=== PATIENT | female | born 1940 | race Caucasian/White ===

== ENCOUNTER → 2017-03-12 | Outpatient (CLI) | payer MEDICARE, MEDICAID ==
[~2017-03-12] MED LIST: ACET-2178 PO; ALEN70TA3 PO; AMLO10TA4 PO; BACL-141 PO; BIMA2.5D4 EACHEYE; CALC667C4 PO; DONE10TA11 PO; FISH OIL PO; FURO-152 PO; GABA-533 PO; HYDR-519 PO; MONT10TA21 PO; MULT-1146 PO; OMEP20CA4 PO; PREG75CA PO; PSEU120T56 PO
== END | disposition home or self-care (01) ==
LOC: CT 10:00
PROVIDERS: ATTEND Neurological Surgery
DX: M75.102 Unspecified rotator cuff tear or rupture of left shoulder, not specified as traumatic (principal); M25.511 Pain in right shoulder; M48.061 Spinal stenosis, lumbar region without neurogenic claudication; M47.896 Other spondylosis, lumbar region; M25.512 Pain in left shoulder
CPT/HCPCS: 72131; 73030

== ENCOUNTER → 2017-07-21 | Outpatient (CLI) | payer MEDICARE, MEDICAID | END | disposition home or self-care (01) | LOC: CT 10:21 | PROVIDERS: ATTEND Neurological Surgery | DX: M48.56XA Collapsed vertebra, not elsewhere classified, lumbar region, initial encounter for fracture (principal); M43.16 Spondylolisthesis, lumbar region; Z98.890 Other specified postprocedural states | CPT/HCPCS: 72100 ==

== ENCOUNTER → 2017-08-07 | Outpatient (CLI) | payer MEDICARE, MEDICAID | END | disposition home or self-care (01) | LOC: CT 08:41 | PROVIDERS: ATTEND Neurological Surgery | DX: M41.86 Other forms of scoliosis, lumbar region (principal); M47.896 Other spondylosis, lumbar region; G95.29 Other cord compression; I10 Essential (primary) hypertension; J45.909 Unspecified asthma, uncomplicated; Z98.1 Arthrodesis status | CPT/HCPCS: 72131 ==

== ENCOUNTER → 2018-04-20 | Outpatient (CLI) | payer MEDICARE, MEDICAID | END | disposition home or self-care (01) | LOC: CT 08:53 | PROVIDERS: ATTEND Neurological Surgery | DX: S32.039A Unspecified fracture of third lumbar vertebra, initial encounter for closed fracture (principal); X58.XXXA Exposure to other specified factors, initial encounter; Y93.89 Activity, other specified; Y92.89 Other specified places as the place of occurrence of the external cause; Y99.8 Other external cause status | CPT/HCPCS: 72131 ==

== ENCOUNTER 2019-05-08 03:41 | Inpatient (IN) | payer MEDICARE, MEDICAID ==
[~2019-05-08] VITALS: Ht 162.6 cm; Wt 77.8 kg
[2019-05-08] VITALS (36 sets, daily range): BP systolic 80–177; BP diastolic 33–93
[~2019-05-08 03:41] MED LIST changes: -ACET-2178 PO; +TOPUD PO
[2019-05-08] MEDS ORDERED: RANI150T7 MT (05:37)
[2019-05-08] MEDS ORDERED: BENA10TA74 MT (05:37)
[2019-05-08] MEDS ORDERED: TIZA4CAP6 PO (05:38)
[2019-05-08] MEDS ORDERED: ONDANSETRON HCL 4MG/2ML INJ IV STA (05:51)
[2019-05-08] MEDS ORDERED: CEFTRIAXONE 1 G PREMIX 50 ML IV ONE (06:00)
[2019-05-08] MEDS ORDERED: SODIUM CHLORIDE 0.9% 1000ML BAG (SEPSIS BOLUS) IV ONE (06:00)
[2019-05-08 06:47] LABS: HEMATOCRIT. 41.9 % (36.0-48.0); MEAN CORPUSCULAR HEMOGLOBIN 30.8 pg (28.0-32.0); MEAN CORPUSCULAR VOLUME 92.4 fL (81.0-99.0); MEAN PLATELET VOLUME 8.1 fl (7.4-10.4); PLATELET 337 x1000/uL (130-400); RED BLOOD CELL COUNT 4.54 mill/uL (4.2-5.4); RED CELL DISTRIBUTION WIDTH 13.5 % (11.6-14.6)
[2019-05-08 06:53] LABS: CHLORIDE 93 mEq/L (98-107)
[2019-05-08 08:00] LABS: PLATELET ESTIMATE NORMAL
[2019-05-08] MEDS ORDERED: ACETAMINOPHEN 325MG TABLET PO ONE (09:00)
[2019-05-08 09:30] LABS: PROTHROMBIN TIME 10.7 sec (9.6-11.0)
[2019-05-08] MEDS ORDERED: NOREPINEPHRINE 4MG/250ML PMX 250 ML IV PRN ×2 (13:15→14:15)
[2019-05-08] MEDS ORDERED: DOCUSATE SODIUM 100MG CAPSULE PO PRN (14:30)
[2019-05-08] MEDS ORDERED: PIPERACILLIN/TAZOBACTAM 3.375 G in DEXT 5% WATER 100 ML IV SCH (14:30)
[2019-05-08] MEDS ORDERED: NOREPINEPHRINE 4MG in DEXT 5% WATER 250ML IV PRN (14:45)
[2019-05-08 14:50] LABS: BG BASE EXCESS -5.5 mmol/L (-2.0-2.0); BG CARBOXYHEMOGLOBIN 0.4 % (0.5-1.5); BG DEOXYHEMOGLOBIN 2.2 % (0.0-5.0); BG METHEMOGLOBIN 0.9 % (0.0-1.5); BG OXYGEN SATURATION 97.8 % (92.0-98.5); BG OXYHEMOGLOBIN 96.5 % (94.0-97.0); BG PCO2 33.8 mmHg (35.0-45.0); BG PH 7.367 (7.350-7.450); BG PO2 109.8 mmHg (75.0-100.0); BG SAMPLE SITE RIGHT BRACHIAL; BG TOTAL HEMOGLOBIN 12.2 g/dL (12.0-18.0); BG VENT MODE NASAL CANNULA
[2019-05-08] MEDS ORDERED: VANCOMYCIN 1250MG in DEXTROSE 5% WATER 250ML IV SCH (16:00)
[2019-05-08 16:27] LABS: CLARITY URINE CLOUDY (CLEAR); COLOR URINE YELLOW (YELLOW); KETONES URINE NEGATIVE (NEGATIVE); LEUKOCYTE ESTERASE URINE TRACE (NEGATIVE); NITRITE URINE NEGATIVE (NEGATIVE); OCCULT BLOOD URINE 1+ (NEGATIVE); PROTEIN URINE 1+ (NEGATIVE); SPECIFIC GRAVITY URINE 1.016 (1.005-1.030); UROBILINOGEN URINE 0.2 E.U./dL (0.2-1.0)
[2019-05-08] MEDS ORDERED: MAGNESIUM CITRATE 300ML SOLUTION PO ONE (17:00)
[2019-05-08] MEDS: PIPERACILLIN/TAZOBACTAM 2.25 G in DEXTROSE 5% WATER 50 ML IV SCH (17:12)
[2019-05-08] MEDS: HYDROCODONE/ACETAMINOPHEN 5/325MG TABLET PO PRN (17:12)
[2019-05-08] MEDS: SODIUM CHLORIDE 0.9% 1,000 ML IV SCH ×2 (17:13→23:26)
[2019-05-08 18:25] LABS: CREATINE KINASE 627 IU/L (26-192)
[2019-05-08] MEDS ORDERED: DONEPEZIL HCL 10MG TABLET PO SCH (21:00)
[2019-05-08] MEDS: HEPARIN 5000 UNITS/ML VIAL SUBCUT SCH (23:33)
[2019-05-09] VITALS (68 sets, daily range): BP systolic 62–158; BP diastolic 36–114
[2019-05-09] MEDS: HYDROCODONE/ACETAMINOPHEN 5/325MG TABLET PO PRN ×3 (04:35→17:12)
[2019-05-09] MEDS ORDERED: NOREPINEPHRINE 4 MG in SODIUM CHLORIDE 0.9% 246 ML IV SCH (06:00)
[2019-05-09 06:49] LABS: HEMATOCRIT. 33.1 % (36.0-48.0); HEMOGLOBIN. 11.1 g/dL (12.0-16.0); MEAN CORPUSCULAR HEMOGLOBIN 31.1 pg (28.0-32.0); MEAN CORPUSCULAR VOLUME 92.6 fL (81.0-99.0); MEAN PLATELET VOLUME 8.5 fl (7.4-10.4); PLATELET 303 x1000/uL (130-400); RED BLOOD CELL COUNT 3.57 mill/uL (4.2-5.4); RED CELL DISTRIBUTION WIDTH 13.3 % (11.6-14.6)
[2019-05-09 06:55] LABS: CHLORIDE 105 mEq/L (98-107)
[2019-05-09 07:00] LABS: PHOSPHORUS 2.6 mg/dL (2.5-4.9)
[2019-05-09 07:01] LABS: HDL CHOLESTEROL 44 mg/dL (40-59); LDL CHOLESTEROL 66 mg/dL (5-100)
[2019-05-09] MEDS: PIPERACILLIN/TAZOBACTAM 2.25 G in DEXTROSE 5% WATER 50 ML IV SCH ×2 (07:58→17:12)
[2019-05-09] MEDS: HEPARIN 5000 UNITS/ML VIAL SUBCUT SCH ×2 (08:15→21:42)
[2019-05-09] MEDS ORDERED: PREG50CA PO (10:00)
[2019-05-09] MEDS ORDERED: LATA7.5D OP (10:00)
[2019-05-09] MEDS ORDERED: FURO-151 PO (10:00)
[2019-05-09] MEDS: SODIUM CHLORIDE 0.9% 1,000 ML IV SCH (12:17)
[2019-05-09 13:46] LABS: PLATELET ESTIMATE NORMAL
[2019-05-09] MEDS ORDERED: VANCOMYCIN 750 MG PREMIX 150 ML IV SCH (15:00)
[2019-05-10] VITALS (41 sets, daily range): BP systolic 94–157; BP diastolic 35–113
[2019-05-10] MEDS: SODIUM CHLORIDE 0.9% 1,000 ML IV SCH ×3 (02:12→16:24)
[2019-05-10] MEDS: HYDROCODONE/ACETAMINOPHEN 5/325MG TABLET PO PRN ×4 (02:12→21:36)
[2019-05-10 06:16] LABS: HEMATOCRIT. 28.1 % (36.0-48.0); HEMOGLOBIN. 9.3 g/dL (12.0-16.0); MEAN CORPUSCULAR HEMOGLOBIN 30.8 pg (28.0-32.0); MEAN CORPUSCULAR VOLUME 92.9 fL (81.0-99.0); MEAN PLATELET VOLUME 9.4 fl (7.4-10.4); PLATELET 215 x1000/uL (130-400); RED BLOOD CELL COUNT 3.02 mill/uL (4.2-5.4); RED CELL DISTRIBUTION WIDTH 13.4 % (11.6-14.6)
[2019-05-10 06:22] LABS: CHLORIDE 111 mEq/L (98-107)
[2019-05-10] MEDS: PIPERACILLIN/TAZOBACTAM 2.25 G in DEXTROSE 5% WATER 50 ML IV SCH ×2 (06:31→17:44)
[2019-05-10 06:44] LABS: PHOSPHORUS 1.3 mg/dL (2.5-4.9)
[2019-05-10 06:47] LABS: T4 FREE 1.29 ng/dL (0.76-1.46)
[2019-05-10] MEDS: HEPARIN 5000 UNITS/ML VIAL SUBCUT SCH ×2 (08:02→21:37)
[2019-05-10] MEDS ORDERED: SODIUM PHOS,M-BASIC-D-BASIC 30 MM in SODIUM CHLORIDE 0.9% 500 ML IV ONE (11:00)
[2019-05-10] MEDS ORDERED: SODIUM PHOS,M-BASIC-D-BASIC 30 MM in DEXT 5% WATER 500 ML IV SCH (12:30)
[2019-05-10] MEDS: VANCOMYCIN 1 G PREMIX 200 ML IV SCH (13:33)
[2019-05-10 13:45] LABS: PLATELET ESTIMATE NORMAL
[2019-05-11] VITALS: BP 151/68
[2019-05-11 04:00] VITALS: BP 143/58
[2019-05-11] MEDS: HYDROCODONE/ACETAMINOPHEN 5/325MG TABLET PO PRN (04:42)
[2019-05-11] MEDS: PIPERACILLIN/TAZOBACTAM 2.25 G in DEXTROSE 5% WATER 50 ML IV SCH ×2 (05:47→17:25)
[2019-05-11] MEDS: VANCOMYCIN 1 G PREMIX 200 ML IV SCH (06:35)
[2019-05-11 07:01] LABS: HEMATOCRIT. 29.4 % (36.0-48.0); HEMOGLOBIN. 9.8 g/dL (12.0-16.0); MEAN CORPUSCULAR HEMOGLOBIN 30.9 pg (28.0-32.0); MEAN CORPUSCULAR VOLUME 92.6 fL (81.0-99.0); MEAN PLATELET VOLUME 9.4 fl (7.4-10.4); PLATELET 233 x1000/uL (130-400); RED BLOOD CELL COUNT 3.17 mill/uL (4.2-5.4); RED CELL DISTRIBUTION WIDTH 13.1 % (11.6-14.6)
[2019-05-11 07:05] LABS: CHLORIDE 111 mEq/L (98-107)
[2019-05-11 07:11] LABS: PHOSPHORUS 1.8 mg/dL (2.5-4.9)
[2019-05-11 08:00] VITALS: BP 145/73
[2019-05-11] MEDS: HEPARIN 5000 UNITS/ML VIAL SUBCUT SCH ×2 (08:47→20:42)
[2019-05-11] MEDS: SODIUM CHLORIDE 0.9% 1,000 ML IV SCH (11:38)
[2019-05-11 12:00] VITALS: BP 172/74
[2019-05-11] MEDS: CLONIDINE 0.1MG TABLET PO PRN (12:50)
[2019-05-11] MEDS: ONDANSETRON HCL 4MG/2ML INJ IV PRN (14:03)
[2019-05-11 14:11] LABS: PLATELET ESTIMATE NORMAL
[2019-05-11 16:00] VITALS: BP 159/67
[2019-05-11] MEDS ORDERED: POTASSIUM PHOS,M-BASIC-D-BASIC 30 MMOL in DEXT 5% WATER 500 ML IV SCH (16:00)
[2019-05-11] MEDS: ACETAMINOPHEN 325MG TABLET PO PRN (16:18)
[2019-05-11] MEDS: BENAZEPRIL 10MG TABLET PO SCH (16:18)
[2019-05-11 20:00] VITALS: BP 138/69
[2019-05-12] VITALS: BP 152/105
[2019-05-12] MEDS: VANCOMYCIN 1 G PREMIX 200 ML IV SCH ×2 (00:50→18:03)
[2019-05-12 04:00] VITALS: BP 166/107
[2019-05-12] MEDS: PIPERACILLIN/TAZOBACTAM 2.25 G in DEXTROSE 5% WATER 50 ML IV SCH ×2 (05:41→17:01)
[2019-05-12] MEDS: CLONIDINE 0.1MG TABLET PO PRN ×2 (06:11→12:35)
[2019-05-12] MEDS: ONDANSETRON HCL 4MG/2ML INJ IV PRN ×2 (06:41→12:41)
[2019-05-12] MEDS: SODIUM CHLORIDE 0.9% 1,000 ML IV SCH ×2 (06:42→21:13)
[2019-05-12 08:00] VITALS: BP 159/69
[2019-05-12 08:10] LABS: HEMATOCRIT. 31.4 % (36.0-48.0); HEMOGLOBIN. 10.4 g/dL (12.0-16.0); MEAN CORPUSCULAR HEMOGLOBIN 30.6 pg (28.0-32.0); MEAN CORPUSCULAR VOLUME 92.2 fL (81.0-99.0); MEAN PLATELET VOLUME 8.7 fl (7.4-10.4); PLATELET 313 x1000/uL (130-400); RED CELL DISTRIBUTION WIDTH 13.4 % (11.6-14.6)
[2019-05-12 08:33] LABS: CHLORIDE 109 mEq/L (98-107)
[2019-05-12] MEDS: BENAZEPRIL 10MG TABLET PO SCH (08:38)
[2019-05-12] MEDS: HEPARIN 5000 UNITS/ML VIAL SUBCUT SCH ×2 (08:38→21:00)
[2019-05-12 08:43] LABS: PHOSPHORUS 2.6 mg/dL (2.5-4.9)
[2019-05-12 10:32] LABS: PLATELET ESTIMATE NORMAL
[2019-05-12 12:00] VITALS: BP 166/77
[2019-05-12] MEDS: HYDRALAZINE HCL 25MG TABLET PO SCH ×2 (15:23→21:12)
[2019-05-12 16:00] VITALS: BP 154/77
[2019-05-12 20:00] VITALS: BP 150/62
[2019-05-12] MEDS: AMLODIPINE 5MG TABLET PO SCH (21:12)
[2019-05-13] VITALS: BP 157/65
[2019-05-13 04:00] VITALS: BP 142/64
[2019-05-13] MEDS: PIPERACILLIN/TAZOBACTAM 2.25 G in DEXTROSE 5% WATER 50 ML IV SCH ×2 (05:39→17:11)
[2019-05-13] MEDS: HYDRALAZINE HCL 25MG TABLET PO SCH (05:48)
[2019-05-13] MEDS: ONDANSETRON HCL 4MG/2ML INJ IV PRN ×3 (06:43→17:11)
[2019-05-13 08:00] VITALS: BP 150/64
[2019-05-13] MEDS: BENAZEPRIL 10MG TABLET PO SCH ×2 (08:10→21:49)
[2019-05-13] MEDS: AMLODIPINE 5MG TABLET PO SCH ×2 (08:10→21:48)
[2019-05-13] MEDS: HEPARIN 5000 UNITS/ML VIAL SUBCUT SCH ×2 (08:11→21:50)
[2019-05-13 09:19] LABS: HEMATOCRIT. 32.6 % (36.0-48.0); MEAN CORPUSCULAR HEMOGLOBIN 30.8 pg (28.0-32.0); MEAN CORPUSCULAR VOLUME 91.7 fL (81.0-99.0); MEAN PLATELET VOLUME 9.4 fl (7.4-10.4); PLATELET 345 x1000/uL (130-400); RED BLOOD CELL COUNT 3.55 mill/uL (4.2-5.4); RED CELL DISTRIBUTION WIDTH 13.2 % (11.6-14.6)
[2019-05-13 09:52] LABS: CHLORIDE 112 mEq/L (98-107)
[2019-05-13 09:57] LABS: PHOSPHORUS 1.6 mg/dL (2.5-4.9)
[2019-05-13 12:00] VITALS: BP 166/63
[2019-05-13] MEDS ORDERED: IOHEXOL-350 100 ML BOTTLE ONE (12:16)
[2019-05-13] MEDS: SODIUM CHLORIDE 0.9% 1,000 ML IV SCH (12:38)
[2019-05-13] MEDS: VANCOMYCIN 1 G PREMIX 200 ML IV SCH (12:38)
[2019-05-13] MEDS: HYDRALAZINE HCL 50MG TABLET PO SCH ×2 (12:42→21:48)
[2019-05-13 13:02] LABS: PLATELET ESTIMATE NORMAL
[2019-05-13 16:00] VITALS: BP 143/91
[2019-05-13 20:00] VITALS: BP 156/56
[2019-05-13] MEDS: ACETAMINOPHEN 325MG TABLET PO PRN (23:52)
[2019-05-14] VITALS: BP 146/65
[2019-05-14] MEDS: METHYLPREDNISOLONE SOD SUCC 40 MG/ML VIAL IV SCH ×4 (00:20→18:49)
[2019-05-14] MEDS: SODIUM CHLORIDE 0.9% 1,000 ML IV SCH ×2 (00:22→13:00)
[2019-05-14] MEDS: ONDANSETRON HCL 4MG/2ML INJ IV PRN (02:46)
[2019-05-14 04:00] VITALS: BP 161/54
[2019-05-14] MEDS: HYDRALAZINE HCL 50MG TABLET PO SCH ×3 (05:07→21:29)
[2019-05-14] MEDS: ACETAMINOPHEN 325MG TABLET PO PRN (05:07)
[2019-05-14] MEDS: PIPERACILLIN/TAZOBACTAM 2.25 G in DEXTROSE 5% WATER 50 ML IV SCH (05:07)
[2019-05-14] MEDS: VANCOMYCIN 1 G PREMIX 200 ML IV SCH (05:59)
[2019-05-14 08:00] VITALS: BP 145/61
[2019-05-14 09:04] LABS: CHLORIDE 112 mEq/L (98-107)
[2019-05-14 09:12] LABS: HEMATOCRIT. 31.1 % (36.0-48.0); HEMOGLOBIN. 10.3 g/dL (12.0-16.0); MEAN CORPUSCULAR HEMOGLOBIN 30.7 pg (28.0-32.0); MEAN CORPUSCULAR VOLUME 92.4 fL (81.0-99.0); MEAN PLATELET VOLUME 9.2 fl (7.4-10.4); PLATELET 414 x1000/uL (130-400); RED BLOOD CELL COUNT 3.37 mill/uL (4.2-5.4); RED CELL DISTRIBUTION WIDTH 13.8 % (11.6-14.6)
[2019-05-14 09:19] LABS: CREATINE KINASE 43 IU/L (26-192)
[2019-05-14] MEDS: BENAZEPRIL 10MG TABLET PO SCH ×2 (10:34→21:29)
[2019-05-14] MEDS: AMLODIPINE 5MG TABLET PO SCH ×2 (10:34→21:29)
[2019-05-14] MEDS: HEPARIN 5000 UNITS/ML VIAL SUBCUT SCH ×2 (10:49→21:28)
[2019-05-14] MEDS ORDERED: LORAZEPAM 2MG/ML CPJ IV NR (11:15)
[2019-05-14] MEDS ORDERED: MAGNESIUM 2 G PREMIX 50 ML IV NR (11:30)
[2019-05-14 12:00] VITALS: BP 165/68
[2019-05-14 14:24] LABS: PLATELET ESTIMATE SLIGHTLY INCREASED
[2019-05-14 16:00] VITALS: BP 138/54
[2019-05-14] MEDS ORDERED: CALCIUM CARBONATE 1250MG TABLET (500MG ELEMENTAL CALCIUM) PO SCH (18:00)
[2019-05-14 20:00] VITALS: BP 138/58
[2019-05-14] MEDS: CALCIUM CARBONATE 1250MG TABLET (500MG ELEMENTAL CALCIUM) PO SCH (21:29)
[2019-05-15] VITALS: BP 141/60
[2019-05-15] MEDS: METHYLPREDNISOLONE SOD SUCC 40 MG/ML VIAL IV SCH ×5 (00:32→23:09)
[2019-05-15] MEDS: VANCOMYCIN 1 G PREMIX 200 ML IV SCH ×2 (01:57→20:18)
[2019-05-15] MEDS: SODIUM CHLORIDE 0.9% 1,000 ML IV SCH ×2 (01:59→17:54)
[2019-05-15 04:00] VITALS: BP 138/61
[2019-05-15] MEDS: HYDRALAZINE HCL 50MG TABLET PO SCH ×3 (06:22→21:38)
[2019-05-15] MEDS ORDERED: ALENDRONATE SODIUM 35MG TABLET PO SCH (07:00)
[2019-05-15 08:05] LABS: HEMATOCRIT. 28.3 % (36.0-48.0); HEMOGLOBIN. 9.6 g/dL (12.0-16.0); MEAN CORPUSCULAR HEMOGLOBIN 31.2 pg (28.0-32.0); PLATELET 430 x1000/uL (130-400); RED BLOOD CELL COUNT 3.08 mill/uL (4.2-5.4); RED CELL DISTRIBUTION WIDTH 13.9 % (11.6-14.6)
[2019-05-15 08:15] LABS: CHLORIDE 114 mEq/L (98-107)
[2019-05-15] MEDS: CALCIUM CARBONATE 1250MG TABLET (500MG ELEMENTAL CALCIUM) PO SCH ×3 (08:50→17:54)
[2019-05-15] MEDS: BENAZEPRIL 10MG TABLET PO SCH ×2 (08:51→21:31)
[2019-05-15] MEDS: FOLIC ACID 1MG TABLET PO SCH (08:51)
[2019-05-15] MEDS: HEPARIN 5000 UNITS/ML VIAL SUBCUT SCH ×2 (08:51→21:32)
[2019-05-15] MEDS: AMLODIPINE 5MG TABLET PO SCH ×2 (08:51→21:31)
[2019-05-15] MEDS ORDERED: ERGOCALCIFEROL 50000UNITS CAPSULE PO SCH (09:00)
[2019-05-15 12:00] VITALS: BP 133/56
[2019-05-15 14:27] LABS: PLATELET ESTIMATE INCREASED
[2019-05-15 16:00] VITALS: BP 144/65
[2019-05-15 20:00] VITALS: BP 160/61
[2019-05-15] MEDS: ACETAMINOPHEN 325MG TABLET PO PRN (22:59)
[2019-05-16] VITALS: BP 151/67
[2019-05-16] MEDS: ONDANSETRON HCL 4MG/2ML INJ IV PRN ×2 (02:08→20:27)
[2019-05-16 04:00] VITALS: BP 137/55
[2019-05-16 06:10] LABS: HEMATOCRIT. 23.9 % (36.0-48.0); HEMOGLOBIN. 8.1 g/dL (12.0-16.0); MEAN CORPUSCULAR VOLUME 91.4 fL (81.0-99.0); MEAN PLATELET VOLUME 8.2 fl (7.4-10.4); PLATELET 397 x1000/uL (130-400); RED BLOOD CELL COUNT 2.62 mill/uL (4.2-5.4); RED CELL DISTRIBUTION WIDTH 13.8 % (11.6-14.6)
[2019-05-16 06:26] LABS: CHLORIDE 110 mEq/L (98-107)
[2019-05-16] MEDS: METHYLPREDNISOLONE SOD SUCC 40 MG/ML VIAL IV SCH ×3 (06:55→18:10)
[2019-05-16] MEDS: ACETAMINOPHEN 325MG TABLET PO PRN ×2 (06:55→13:55)
[2019-05-16] MEDS: HYDRALAZINE HCL 50MG TABLET PO SCH ×3 (07:05→20:20)
[2019-05-16] MEDS: SODIUM CHLORIDE 0.9% 1,000 ML IV SCH ×2 (07:06→20:21)
[2019-05-16 08:00] VITALS: BP 139/61
[2019-05-16] MEDS: HEPARIN 5000 UNITS/ML VIAL SUBCUT SCH (08:44)
[2019-05-16 08:56] LABS: PLATELET ESTIMATE NORMAL
[2019-05-16] MEDS ORDERED: METHOTREXATE SODIUM/PF 50 MG/2 ML VIAL IM SCH (09:00)
[2019-05-16] MEDS: BENAZEPRIL 10MG TABLET PO SCH ×2 (09:00→21:00)
[2019-05-16] MEDS: CALCIUM CARBONATE 1250MG TABLET (500MG ELEMENTAL CALCIUM) PO SCH ×3 (09:20→18:10)
[2019-05-16] MEDS: AMLODIPINE 5MG TABLET PO SCH ×2 (09:21→20:20)
[2019-05-16] MEDS: FOLIC ACID 1MG TABLET PO SCH (09:21)
[2019-05-16] MEDS: PANTOPRAZOLE SODIUM 40 MG/VIAL IV SCH (09:45)
[2019-05-16] MEDS: SUCRALFATE 1 G/10 ML UDC PO SCH ×3 (11:45→20:19)
[2019-05-16 12:00] VITALS: BP 137/69
[2019-05-16 13:20] LABS: HEMATOCRIT 23.5 % (36.0-48.0); HEMOGLOBIN 7.8 g/dL (12.0-16.0); MEAN CORPUSCULAR HEMOGLOBIN 30.5 pg (28.0-32.0); MEAN CORPUSCULAR VOLUME 91.6 fL (81.0-99.0); PLATELET 447 x1000/uL (130-400); RED BLOOD CELL COUNT 2.56 mill/uL (4.2-5.4)
[2019-05-16 16:00] VITALS: BP 121/63
[2019-05-16] MEDS: HYDROCODONE/ACETAMINOPHEN 5/325MG TABLET PO PRN (18:20)
[2019-05-16 20:00] VITALS: BP 121/66
[2019-05-17] VITALS (48 sets, daily range): BP systolic 68–153; BP diastolic 27–126
[2019-05-17] MEDS: METHYLPREDNISOLONE SOD SUCC 40 MG/ML VIAL IV SCH ×2 (01:32→05:32)
[2019-05-17] MEDS: ACETAMINOPHEN 325MG TABLET PO PRN (01:38)
[2019-05-17] MEDS: SUCRALFATE 1 G/10 ML UDC PO SCH ×3 (05:32→16:30)
[2019-05-17] MEDS: HYDRALAZINE HCL 50MG TABLET PO SCH (05:32)
[2019-05-17] MEDS: BENAZEPRIL 10MG TABLET PO SCH (09:00)
[2019-05-17] MEDS: CALCIUM CARBONATE 1250MG TABLET (500MG ELEMENTAL CALCIUM) PO SCH ×3 (09:00→17:00)
[2019-05-17] MEDS: AMLODIPINE 5MG TABLET PO SCH (09:00)
[2019-05-17 09:06] LABS: ALDOLASE 6.3 U/L (3.3-10.3)
[2019-05-17] MEDS: PANTOPRAZOLE SODIUM 40 MG/VIAL IV SCH ×2 (09:30→21:06)
[2019-05-17] MEDS: FOLIC ACID 1MG TABLET PO SCH (09:30)
[2019-05-17] MEDS: PREDNISONE 20MG TABLET PO SCH ×2 (09:31→17:00)
[2019-05-17 09:34] LABS: MEAN PLATELET VOLUME 8.3 fl (7.4-10.4); PLATELET 303 x1000/uL (130-400); RED BLOOD CELL COUNT 1.61 mill/uL (4.2-5.4); RED CELL DISTRIBUTION WIDTH 14.2 % (11.6-14.6)
[2019-05-17 09:41] LABS: CHLORIDE 113 mEq/L (98-107)
[2019-05-17 09:49] LABS: HEMATOCRIT. 15.2 % (36.0-48.0); HEMOGLOBIN. 4.8 g/dL (12.0-16.0)
[2019-05-17 10:08] LABS: ANTI-CARDIOLIPIN AB IGA 10 APL U/mL (0-11); ANTI-CARDIOLIPIN AB IGG < 9 GPL U/mL (0-14); ANTI-CARDIOLIPIN AB IGM < 9 MPL U/mL (0-12)
[2019-05-17] MEDS ORDERED: SODIUM CHLORIDE 0.9% 1000ML BAG (SEPSIS BOLUS) IV NR (10:30)
[2019-05-17] MEDS ORDERED: SODIUM CHLORIDE 0.9% 1,000 ML IV ONE (11:30)
[2019-05-17] MEDS: NOREPINEPHRINE 32 MG in DEXT 5% WATER 468 ML IV PRN (11:40)
[2019-05-17 11:48] LABS: HEMATOCRIT 13.3 % (36.0-48.0); HEMOGLOBIN 4.3 g/dL (12.0-16.0)
[2019-05-17 12:22] LABS: PARTIAL THROMBOPLASTIN TIME 52.1 sec (23.4-31.0); PROTHROMBIN TIME 71.7 sec (9.6-11.0)
[2019-05-17 12:36] LABS: INR 7.6
[2019-05-17 13:06] LABS: ANTI-MYELOPEROXIDASE AB < 9.0 U/mL (0.0-9.0); ANTI-PROTEINASE 3 ABS < 3.5 U/mL (0.0-3.5)
[2019-05-17 13:06] LABS: NUCLEATED RED BLOOD CELLS 1 /100 WBC; PLATELET ESTIMATE NORMAL
[2019-05-17] MEDS ORDERED: PHYTONADIONE 10MG/ML AMP SUBCUT NR (13:30)
[2019-05-17 15:08] LABS: ANTI-JO 1 ABS <0.2 AI (0.0-0.9); RNP ANTIBODY < 0.2 AI (0.0-0.9); SMITH ANTIBODY < 0.2 AI (0.0-0.9)
[2019-05-17 15:08] LABS: ANTI-DNA DOUBLE STRANDED QUANT < 1 IU/mL (0-9); ATYPICAL P-ANCA <1:20 titer (Neg:<1:20); CYTOPLASMIC C-ANCA <1:20 titer (Neg:<1:20); PERINUCLEAR P-ANCA <1:20 titer (Neg:<1:20)
[2019-05-17 17:10] LABS: CYC CITRULLINATED PEP IgG/IgA 9 units (0-19)
[2019-05-17] MEDS ORDERED: FUROSEMIDE 40MG/4ML VIAL IVP SCH (18:00)
[2019-05-17] MEDS ORDERED: LIDOCAINE HCL 2% JELLY 5ML MM NR (18:30)
[2019-05-17 18:38] LABS: HEMATOCRIT 24.2 % (36.0-48.0); MEAN CORPUSCULAR HEMOGLOBIN 29.9 pg (28.0-32.0); MEAN CORPUSCULAR VOLUME 90.7 fL (81.0-99.0); PLATELET 201 x1000/uL (130-400); RED BLOOD CELL COUNT 2.67 mill/uL (4.2-5.4)
[2019-05-17 18:50] LABS: PHOSPHORUS 1.9 mg/dL (2.5-4.9)
[2019-05-17 19:04] LABS: D-DIMER 5.75 mg/L FEU (<0.50); INR 1.7; PROTHROMBIN TIME 17.1 sec (9.6-11.0)
[2019-05-17] MEDS ORDERED: METHYLPREDNISOLONE SOD SUCC 40 MG/ML VIAL IV NR (20:48)
[2019-05-17] MEDS ORDERED: FUROSEMIDE 40MG/4ML VIAL IVP NR (21:00)
[2019-05-17] MEDS: SODIUM CHLORIDE 0.9% 1,000 ML IV SCH (21:07)
[2019-05-17] MEDS ORDERED: POTASSIUM PHOS,M-BASIC-D-BASIC 20 MMOL in DEXT 5% WATER 243.3333 ML IV NR (22:00)
[2019-05-17] MEDS ORDERED: POTASSIUM CHLORIDE INJ 40 MEQ in DEXT 5% WATER 250 ML IV NR (22:00)
[2019-05-17] MEDS ORDERED: MAGNESIUM 2 G PREMIX 50 ML IV NR (22:00)
[2019-05-17 23:16] LABS: HEMATOCRIT 19.4 % (36.0-48.0); HEMOGLOBIN 6.5 g/dL (12.0-16.0)
[2019-05-17 23:45] LABS: HEPATITIS B SURFACE ANTIGEN NEGATIVE
[2019-05-18] VITALS (92 sets, daily range): BP systolic 82–149; BP diastolic 42–92
[2019-05-18 00:15] LABS: HEPATITIS A AB IGM NEGATIVE (NEGATIVE)
[2019-05-18] MEDS: ONDANSETRON HCL 4MG/2ML INJ IV PRN (06:26)
[2019-05-18] MEDS: MORPHINE SULFATE 2 MG/ML CPJ (NOT FOR IM USE) IV PRN ×2 (06:26→15:05)
[2019-05-18 09:05] LABS: HEMATOCRIT 26.1 % (36.0-48.0); HEMOGLOBIN 9.2 g/dL (12.0-16.0); MEAN CORPUSCULAR HEMOGLOBIN 30.2 pg (28.0-32.0); MEAN CORPUSCULAR VOLUME 85.8 fL (81.0-99.0); PLATELET 166 x1000/uL (130-400); RED BLOOD CELL COUNT 3.04 mill/uL (4.2-5.4); RED CELL DISTRIBUTION WIDTH 14.8 % (11.6-14.6)
[2019-05-18] MEDS: PANTOPRAZOLE SODIUM 40 MG/VIAL IV SCH ×2 (09:29→20:38)
[2019-05-18] MEDS: METHYLPREDNISOLONE SOD SUCC 40 MG/ML VIAL IV SCH ×2 (09:30→18:04)
[2019-05-18] MEDS: HYDROCODONE/ACETAMINOPHEN 5/325MG TABLET PO PRN (09:31)
[2019-05-18] MEDS: CEFEPIME 1,000 MG in DEXTROSE 5% WATER 50 ML IV SCH (13:12)
[2019-05-18] MEDS ORDERED: FUROSEMIDE 40MG/4ML VIAL IVP NR (13:45)
[2019-05-18 15:10] LABS: ANA IFA Positive (.)
[2019-05-18 17:40] LABS: HEMATOCRIT 24.8 % (36.0-48.0); HEMOGLOBIN 8.5 g/dL (12.0-16.0)
[2019-05-18] MEDS: SODIUM CHLORIDE 0.9% 1,000 ML IV SCH (20:38)
[2019-05-19] VITALS (96 sets, daily range): BP systolic 75–169; BP diastolic 28–80
[2019-05-19] MEDS: ONDANSETRON HCL 4MG/2ML INJ IV PRN (05:54)
[2019-05-19] MEDS: MORPHINE SULFATE 2 MG/ML CPJ (NOT FOR IM USE) IV PRN ×4 (05:54→21:02)
[2019-05-19 05:57] LABS: HEMATOCRIT. 21.6 % (36.0-48.0); HEMOGLOBIN. 7.4 g/dL (12.0-16.0); MEAN CORPUSCULAR VOLUME 87.1 fL (81.0-99.0); MEAN PLATELET VOLUME 9.1 fl (7.4-10.4); PLATELET 154 x1000/uL (130-400); RED BLOOD CELL COUNT 2.48 mill/uL (4.2-5.4); RED CELL DISTRIBUTION WIDTH 15.6 % (11.6-14.6)
[2019-05-19 07:12] LABS: NUCLEATED RED BLOOD CELLS 6 /100 WBC; PLATELET ESTIMATE NORMAL
[2019-05-19] MEDS: METHYLPREDNISOLONE SOD SUCC 40 MG/ML VIAL IV SCH ×2 (08:45→16:26)
[2019-05-19] MEDS: PANTOPRAZOLE SODIUM 40 MG/VIAL IV SCH ×2 (08:45→21:02)
[2019-05-19] MEDS ORDERED: FUROSEMIDE 40MG/4ML VIAL IVP NR (09:15)
[2019-05-19 09:49] LABS: BG BASE EXCESS -5.4 mmol/L (-2.0-2.0); BG CARBOXYHEMOGLOBIN 0.3 % (0.5-1.5); BG DEOXYHEMOGLOBIN 5.9 % (0.0-5.0); BG FRACTION INSPIRED OXYGEN 40; BG HCO3 ACT 18.3 mmol/L (22.0-26.0); BG METHEMOGLOBIN 0.3 % (0.0-1.5); BG OXYGEN SATURATION 94.1 % (92.0-98.5); BG OXYHEMOGLOBIN 93.5 % (94.0-97.0); BG PCO2 27.2 mmHg (35.0-45.0); BG PH 7.445 (7.350-7.450); BG PO2 73.5 mmHg (75.0-100.0); BG SAMPLE SITE RIGHT RADIAL; BG TOTAL HEMOGLOBIN 5.4 g/dL (12.0-18.0); BG VENT MODE NASAL CANNULA
[2019-05-19] MEDS: CEFEPIME 1,000 MG in DEXTROSE 5% WATER 50 ML IV SCH (09:58)
[2019-05-19] MEDS: HYDROCODONE/ACETAMINOPHEN 5/325MG TABLET PO PRN ×2 (13:51→21:45)
[2019-05-19 16:56] LABS: HEMOGLOBIN 7.2 g/dL (12.0-16.0); MEAN CORPUSCULAR HEMOGLOBIN 30.8 pg (28.0-32.0); MEAN CORPUSCULAR VOLUME 89.8 fL (81.0-99.0); PLATELET 130 x1000/uL (130-400); RED BLOOD CELL COUNT 2.34 mill/uL (4.2-5.4); RED CELL DISTRIBUTION WIDTH 15.2 % (11.6-14.6)
[2019-05-19 17:16] LABS: PROTHROMBIN TIME 10.7 sec (9.6-11.0)
[2019-05-19 20:45] LABS: HEMATOCRIT 25.9 % (36.0-48.0); HEMOGLOBIN 8.9 g/dL (12.0-16.0)
[2019-05-19 20:52] LABS: PROTHROMBIN TIME 10.6 sec (9.6-11.0)
[2019-05-19] MEDS: SODIUM CHLORIDE 0.9% 1,000 ML IV SCH (21:03)
[2019-05-20] VITALS (86 sets, daily range): BP systolic 61–161; BP diastolic 40–78
[2019-05-20] MEDS: MORPHINE SULFATE 2 MG/ML CPJ (NOT FOR IM USE) IV PRN ×2 (01:59→20:59)
[2019-05-20 08:59] LABS: MEAN CORPUSCULAR HEMOGLOBIN 30.6 pg (28.0-32.0); MEAN CORPUSCULAR VOLUME 90.9 fL (81.0-99.0); MEAN PLATELET VOLUME 9.6 fl (7.4-10.4); PLATELET 149 x1000/uL (130-400); RED CELL DISTRIBUTION WIDTH 14.6 % (11.6-14.6)
[2019-05-20 09:02] LABS: HEMOGLOBIN. 6.1 g/dL (12.0-16.0)
[2019-05-20 09:03] LABS: HEMATOCRIT. 18.2 % (36.0-48.0)
[2019-05-20] MEDS: PANTOPRAZOLE SODIUM 40 MG/VIAL IV SCH ×2 (09:21→20:59)
[2019-05-20] MEDS: METHYLPREDNISOLONE SOD SUCC 40 MG/ML VIAL IV SCH ×2 (09:21→17:21)
[2019-05-20] MEDS: HYDROCODONE/ACETAMINOPHEN 5/325MG TABLET PO PRN (09:21)
[2019-05-20 09:39] LABS: NUCLEATED RED BLOOD CELLS 3 /100 WBC; PLATELET ESTIMATE NORMAL
[2019-05-20] MEDS: CEFEPIME 1,000 MG in DEXTROSE 5% WATER 50 ML IV SCH (11:01)
[2019-05-20] MEDS ORDERED: FUROSEMIDE 40MG/4ML VIAL IVP NR (12:45)
[2019-05-20] MEDS ORDERED: BACTERIOSTATIC SODIUM CHLORIDE 0.9% 30ML VIAL IJ ONE (14:34)
[2019-05-20] MEDS ORDERED: MIDAZOLAM HCL 5 MG/5 ML VIAL ONE (18:59)
[2019-05-20] MEDS ORDERED: FENTANYL CITRATE/PF 50MCG/ML 2ML VIAL ONE (18:59)
[2019-05-20] MEDS ORDERED: MIDAZOLAM HCL 5 MG/5 ML VIAL IV PRN (19:24)
[2019-05-20] MEDS ORDERED: FENTANYL CITRATE/PF 50MCG/ML 2ML VIAL IV PRN (19:25)
[2019-05-20 20:42] LABS: HEMATOCRIT. 28.2 % (36.0-48.0); HEMOGLOBIN. 9.3 g/dL (12.0-16.0); MEAN CORPUSCULAR HEMOGLOBIN 30.4 pg (28.0-32.0); MEAN CORPUSCULAR VOLUME 91.7 fL (81.0-99.0); MEAN PLATELET VOLUME 10.3 fl (7.4-10.4); PLATELET 130 x1000/uL (130-400); RED BLOOD CELL COUNT 3.07 mill/uL (4.2-5.4); RED CELL DISTRIBUTION WIDTH 14.6 % (11.6-14.6)
[2019-05-20 20:55] LABS: CHLORIDE 113 mEq/L (98-107)
[2019-05-20 20:56] LABS: INR 1.1; PROTHROMBIN TIME 11.5 sec (9.6-11.0)
[2019-05-20] MEDS: SODIUM CHLORIDE 0.9% 1,000 ML IV SCH (21:00)
[2019-05-20 21:02] LABS: PHOSPHORUS 2.9 mg/dL (2.5-4.9)
[2019-05-20 21:06] LABS: AMYLASE 134 IU/L (25-115)
[2019-05-20 21:26] LABS: NUCLEATED RED BLOOD CELLS 14 /100 WBC
[2019-05-20 21:27] LABS: PLATELET ESTIMATE NORMAL
[2019-05-20 21:52] LABS: BG BASE EXCESS -8.1 mmol/L (-2.0-2.0); BG CARBOXYHEMOGLOBIN 0.3 % (0.5-1.5); BG DEOXYHEMOGLOBIN 8.3 % (0.0-5.0); BG FRACTION INSPIRED OXYGEN 40; BG HCO3 ACT 14.7 mmol/L (22.0-26.0); BG METHEMOGLOBIN 0.1 % (0.0-1.5); BG OXYGEN SATURATION 91.7 % (92.0-98.5); BG OXYHEMOGLOBIN 91.3 % (94.0-97.0); BG PCO2 22.6 mmHg (35.0-45.0); BG PH 7.431 (7.350-7.450); BG PO2 61.9 mmHg (75.0-100.0); BG SAMPLE SITE RIGHT BRACHIAL; BG TOTAL HEMOGLOBIN 10.3 g/dL (12.0-18.0); BG VENT MODE NASAL CANNULA
[2019-05-20] MEDS ORDERED: DEXTROSE 50% WATER 50ML SYRINGE IV PRN (23:30)
[2019-05-21] VITALS (101 sets, daily range): BP systolic 53–173; BP diastolic 21–114
[2019-05-21] MEDS: BLOOD SUGAR DIAGNOSTIC STRIP TEST SCH ×4 (02:39→17:06)
[2019-05-21] MEDS: NOREPINEPHRINE 32 MG in DEXT 5% WATER 468 ML IV PRN (02:40)
[2019-05-21 03:18] LABS: HEMATOCRIT. 22.8 % (36.0-48.0); HEMOGLOBIN. 7.4 g/dL (12.0-16.0); MEAN CORPUSCULAR HEMOGLOBIN 30.3 pg (28.0-32.0); MEAN CORPUSCULAR VOLUME 92.7 fL (81.0-99.0); MEAN PLATELET VOLUME 10.2 fl (7.4-10.4); PLATELET 146 x1000/uL (130-400); RED BLOOD CELL COUNT 2.46 mill/uL (4.2-5.4); RED CELL DISTRIBUTION WIDTH 14.9 % (11.6-14.6)
[2019-05-21 04:13] LABS: NUCLEATED RED BLOOD CELLS 27 /100 WBC; PLATELET ESTIMATE NORMAL
[2019-05-21] MEDS: INSULIN LISPRO 100 UNITS/ML SUBCUT SCH ×4 (05:22→17:07)
[2019-05-21] MEDS: MORPHINE SULFATE 2 MG/ML CPJ (NOT FOR IM USE) IV PRN (08:32)
[2019-05-21] MEDS: HYDROCODONE/ACETAMINOPHEN 5/325MG TABLET PO PRN (10:57)
[2019-05-21] MEDS: PANTOPRAZOLE SODIUM 40 MG/VIAL IV SCH ×2 (11:35→20:22)
[2019-05-21] MEDS: METHYLPREDNISOLONE SOD SUCC 40 MG/ML VIAL IV SCH ×2 (11:35→17:08)
[2019-05-21] MEDS: CEFEPIME 1,000 MG in DEXTROSE 5% WATER 50 ML IV SCH (11:35)
[2019-05-21] MEDS ORDERED: SODIUM BICARBONATE 8.4% 1 MEQ/ML 50ML SYR IV NR (12:15)
[2019-05-21 12:22] LABS: HEMATOCRIT 29.6 % (36.0-48.0); HEMOGLOBIN 10.2 g/dL (12.0-16.0)
[2019-05-21] MEDS ORDERED: ALBUMIN HUMAN 25GM/100ML (25%) IV NR (13:00)
[2019-05-21] MEDS: SODIUM CHLORIDE 0.9% 1,000 ML IV SCH (17:08)
[2019-05-21 19:16] LABS: HEMOGLOBIN 9.8 g/dL (12.0-16.0)
[2019-05-22] VITALS (71 sets, daily range): BP systolic 100–165; BP diastolic 42–99
[2019-05-22] MEDS: BLOOD SUGAR DIAGNOSTIC STRIP TEST SCH ×5 (00:03→23:47)
[2019-05-22] MEDS: LORAZEPAM 0.5MG TABLET PO PRN ×2 (00:08→20:37)
[2019-05-22 01:36] LABS: HEMATOCRIT 25.1 % (36.0-48.0); HEMOGLOBIN 8.5 g/dL (12.0-16.0)
[2019-05-22] MEDS: INSULIN LISPRO 100 UNITS/ML SUBCUT SCH ×5 (05:17→23:47)
[2019-05-22 05:55] LABS: HEMATOCRIT. 23.8 % (36.0-48.0); HEMOGLOBIN. 8.2 g/dL (12.0-16.0); MEAN CORPUSCULAR HEMOGLOBIN 30.4 pg (28.0-32.0); MEAN CORPUSCULAR VOLUME 88.5 fL (81.0-99.0); MEAN PLATELET VOLUME 9.9 fl (7.4-10.4); PLATELET 99 x1000/uL (130-400); RED CELL DISTRIBUTION WIDTH 14.7 % (11.6-14.6)
[2019-05-22 06:02] LABS: CHLORIDE 116 mEq/L (98-107)
[2019-05-22 06:17] LABS: PHOSPHORUS 3.4 mg/dL (2.5-4.9)
[2019-05-22] MEDS: MORPHINE SULFATE 2 MG/ML CPJ (NOT FOR IM USE) IV PRN ×3 (07:44→17:33)
[2019-05-22 08:10] LABS: NUCLEATED RED BLOOD CELLS 7 /100 WBC; PLATELET ESTIMATE SLIGHTLY DECREASED
[2019-05-22 08:19] LABS: BG BASE EXCESS -6.1 mmol/L (-2.0-2.0); BG CARBOXYHEMOGLOBIN 0.3 % (0.5-1.5); BG FRACTION INSPIRED OXYGEN 38; BG METHEMOGLOBIN 0.4 % (0.0-1.5); BG OXYHEMOGLOBIN 92.3 % (94.0-97.0); BG PCO2 30.4 mmHg (35.0-45.0); BG SAMPLE SITE RIGHT RADIAL; BG TOTAL HEMOGLOBIN 9.4 g/dL (12.0-18.0); BG VENT MODE NASAL CANNULA
[2019-05-22] MEDS ORDERED: SODIUM BICARBONATE 4% (2.4MEQ) 5ML VIAL IV ONE (10:54)
[2019-05-22] MEDS: PANTOPRAZOLE SODIUM 40 MG/VIAL IV SCH ×2 (10:58→20:37)
[2019-05-22] MEDS: METHYLPREDNISOLONE SOD SUCC 40 MG/ML VIAL IV SCH ×2 (10:58→17:33)
[2019-05-22] MEDS: CEFEPIME 1,000 MG in DEXTROSE 5% WATER 50 ML IV SCH (10:58)
[2019-05-22] MEDS ORDERED: ALBUMIN HUMAN 25GM/100ML (25%) IV NR (11:30)
[2019-05-22] MEDS: SODIUM CHLORIDE 0.9% 1,000 ML IV SCH (12:08)
[2019-05-22] MEDS: CITRIC ACID/SODIUM CITRATE SOLN 15ML UDC PO SCH ×4 (12:08→17:57)
[2019-05-22 12:55] LABS: HEMATOCRIT 30.6 % (36.0-48.0); HEMOGLOBIN 10.6 g/dL (12.0-16.0)
[2019-05-22] MEDS ORDERED: HYDROCODONE/ACETAMINOPHEN 5/325MG TABLET PO PRN (13:45)
[2019-05-22] MEDS: SUCRALFATE 1 G/10 ML UDC PO SCH ×3 (17:34→18:23)
[2019-05-22] MEDS: NYSTATIN POWDER 15GM TOP SCH (20:37)
[2019-05-22 21:34] LABS: HEMATOCRIT 22.5 % (36.0-48.0); HEMOGLOBIN 7.7 g/dL (12.0-16.0)
[2019-05-23] VITALS (102 sets, daily range): BP systolic 33–190; BP diastolic 14–148
[2019-05-23] MEDS: SUCRALFATE 1 G/10 ML UDC PO SCH ×3 (00:12→17:08)
[2019-05-23 02:21] LABS: HEMOGLOBIN 5.6 g/dL (12.0-16.0)
[2019-05-23 02:22] LABS: HEMATOCRIT 16.4 % (36.0-48.0)
[2019-05-23] MEDS: MORPHINE SULFATE 2 MG/ML CPJ (NOT FOR IM USE) IV PRN (05:12)
[2019-05-23] MEDS: BLOOD SUGAR DIAGNOSTIC STRIP TEST SCH ×3 (05:12→18:25)
[2019-05-23 05:43] LABS: HEMATOCRIT. 23.1 % (36.0-48.0); HEMOGLOBIN. 7.8 g/dL (12.0-16.0); MEAN CORPUSCULAR HEMOGLOBIN 30.2 pg (28.0-32.0); MEAN CORPUSCULAR VOLUME 88.9 fL (81.0-99.0); MEAN PLATELET VOLUME 9.8 fl (7.4-10.4); PLATELET 78 x1000/uL (130-400); RED BLOOD CELL COUNT 2.59 mill/uL (4.2-5.4)
[2019-05-23 05:55] LABS: INR 1.2; PARTIAL THROMBOPLASTIN TIME 31.7 sec (23.4-31.0); PHOSPHORUS 3.2 mg/dL (2.5-4.9); PROTHROMBIN TIME 12.2 sec (9.6-11.0)
[2019-05-23] MEDS: INSULIN LISPRO 100 UNITS/ML SUBCUT SCH ×3 (06:00→18:25)
[2019-05-23] MEDS: SODIUM CHLORIDE 0.9% 1,000 ML IV SCH (06:30)
[2019-05-23] MEDS: NOREPINEPHRINE 32 MG in DEXT 5% WATER 468 ML IV PRN (07:19)
[2019-05-23 07:24] LABS: NUCLEATED RED BLOOD CELLS 2 /100 WBC
[2019-05-23 07:25] LABS: PLATELET ESTIMATE DECREASED
[2019-05-23] MEDS: PANTOPRAZOLE SODIUM 40 MG/VIAL IV SCH ×2 (08:00→21:02)
[2019-05-23] MEDS: METHYLPREDNISOLONE SOD SUCC 40 MG/ML VIAL IV SCH ×2 (08:00→17:33)
[2019-05-23] MEDS ORDERED: METHOTREXATE SODIUM/PF 50 MG/2 ML VIAL IM SCH (09:00)
[2019-05-23] MEDS: NYSTATIN POWDER 15GM TOP SCH ×2 (09:00→21:02)
[2019-05-23] MEDS ORDERED: PHENYLEPHRINE 40 MG in DEXT 5% WATER 246 ML IV PRN (10:15)
[2019-05-23] MEDS ORDERED: LORAZEPAM 2MG/ML CPJ IV PRN (10:30)
[2019-05-23] MEDS ORDERED: ETOMIDATE 2MG/ML 10ML VIAL IV ONE (10:51)
[2019-05-23] MEDS ORDERED: VECURONIUM BROMIDE 10 MG/VIAL IV ONE (10:51)
[2019-05-23] MEDS ORDERED: SODIUM CHLORIDE 0.9% 10ML VIAL ONE (10:51)
[2019-05-23 11:53] LABS: BG BASE EXCESS -21.5 mmol/L (-2.0-2.0); BG CARBOXYHEMOGLOBIN 0.3 % (0.5-1.5); BG DEOXYHEMOGLOBIN 5.6 % (0.0-5.0); BG FRACTION INSPIRED OXYGEN 100; BG HCO3 ACT 7.2 mmol/L (22.0-26.0); BG METHEMOGLOBIN 0.3 % (0.0-1.5); BG OXYGEN SATURATION 94.4 % (92.0-98.5); BG OXYHEMOGLOBIN 93.8 % (94.0-97.0); BG PCO2 25.6 mmHg (35.0-45.0); BG PH 7.066 (7.350-7.450); BG SAMPLE SITE RIGHT RADIAL; BG TIDAL VOLUME(mL) 450 mL; BG VENT MODE VENT - A/C; BG VENT RATE 14 set
[2019-05-23] MEDS: IPRATROPIUM/ALBUTEROL 0.5-3(2.5)MG/3ML NEB HHN PRN ×3 (11:53→20:55)
[2019-05-23] MEDS ORDERED: ALBUMIN HUMAN 25GM/100ML (25%) IV NR (12:00)
[2019-05-23] MEDS ORDERED: SODIUM BICARBONATE 8.4% 1 MEQ/ML 50ML SYR IV NR (12:30)
[2019-05-23] MEDS ORDERED: MAGNESIUM 2 G PREMIX 50 ML IV SCH (12:30)
[2019-05-23 12:31] LABS: HEMATOCRIT 25.5 % (36.0-48.0)
[2019-05-23] MEDS: SODIUM BICARBONATE 100 MEQ in DEXTROSE 5% WATER 900 ML IV SCH (12:38)
[2019-05-23] MEDS: CEFEPIME 1,000 MG in DEXTROSE 5% WATER 50 ML IV SCH (12:40)
[2019-05-23] MEDS: CITRIC ACID/SODIUM CITRATE SOLN 30ML UDC PO SCH ×2 (12:41→17:00)
[2019-05-23] MEDS: FENTANYL CITRATE/PF 500 MCG in SODIUM CHLORIDE 0.9% 40 ML IV PRN (12:43)
[2019-05-23 15:25] LABS: BG BASE EXCESS -9.9 mmol/L (-2.0-2.0); BG CARBOXYHEMOGLOBIN 0.3 % (0.5-1.5); BG DEOXYHEMOGLOBIN 3.1 % (0.0-5.0); BG FRACTION INSPIRED OXYGEN 90; BG HCO3 ACT 14.1 mmol/L (22.0-26.0); BG METHEMOGLOBIN 0.3 % (0.0-1.5); BG OXYGEN SATURATION 96.9 % (92.0-98.5); BG OXYHEMOGLOBIN 96.3 % (94.0-97.0); BG PCO2 24.9 mmHg (35.0-45.0); BG PH 7.372 (7.350-7.450); BG PO2 98.4 mmHg (75.0-100.0); BG SAMPLE SITE RIGHT RADIAL; BG TIDAL VOLUME(mL) 450 mL; BG TOTAL HEMOGLOBIN 8.6 g/dL (12.0-18.0); BG VENT MODE VENT - A/C; BG VENT RATE 20 set
[2019-05-23] MEDS: VASOPRESSIN 10 UNIT in SODIUM CHLORIDE 0.9% 99.5 ML IV PRN ×2 (20:20→23:42)
[2019-05-23 20:35] LABS: HEMATOCRIT 16.1 % (36.0-48.0)
[2019-05-23] MEDS: PHENYLEPHRINE 80 MG in DEXT 5% WATER 492 ML IV PRN (22:15)
[2019-05-24] VITALS (48 sets, daily range): BP systolic 49–157; BP diastolic 21–95
[2019-05-24] MEDS: SUCRALFATE 1 G/10 ML UDC PO SCH ×3 (00:08→11:52)
[2019-05-24] MEDS: BLOOD SUGAR DIAGNOSTIC STRIP TEST SCH ×2 (00:08→06:03)
[2019-05-24] MEDS: INSULIN LISPRO 100 UNITS/ML SUBCUT SCH ×2 (00:09→05:13)
[2019-05-24] MEDS: FENTANYL CITRATE/PF 500 MCG in SODIUM CHLORIDE 0.9% 40 ML IV PRN (02:45)
[2019-05-24] MEDS: NOREPINEPHRINE 32 MG in DEXT 5% WATER 468 ML IV PRN (04:15)
[2019-05-24] MEDS: VASOPRESSIN 10 UNIT in SODIUM CHLORIDE 0.9% 99.5 ML IV PRN ×2 (04:17→08:33)
[2019-05-24] MEDS: PHENYLEPHRINE 80 MG in DEXT 5% WATER 492 ML IV PRN (05:13)
[2019-05-24 05:26] LABS: HEMOGLOBIN. 9.7 g/dL (12.0-16.0); MEAN CORPUSCULAR HEMOGLOBIN 28.5 pg (28.0-32.0); MEAN CORPUSCULAR VOLUME 88.6 fL (81.0-99.0); MEAN PLATELET VOLUME 11.3 fl (7.4-10.4); RED BLOOD CELL COUNT 3.39 mill/uL (4.2-5.4); RED CELL DISTRIBUTION WIDTH 15.6 % (11.6-14.6)
[2019-05-24 06:06] LABS: PLATELET 34 x1000/uL (130-400)
[2019-05-24] MEDS ORDERED: SODIUM BICARBONATE 8.4% 1 MEQ/ML 50ML SYR IV NR (06:39)
[2019-05-24] MEDS ORDERED: SODIUM POLYSTYRENE SULFONATE 15 G/60 ML BOT NG NR (06:45)
[2019-05-24 07:30] LABS: BG BASE EXCESS -17.2 mmol/L (-2.0-2.0); BG CARBOXYHEMOGLOBIN 0.3 % (0.5-1.5); BG DEOXYHEMOGLOBIN 1.8 % (0.0-5.0); BG FRACTION INSPIRED OXYGEN 100; BG HCO3 ACT 9.5 mmol/L (22.0-26.0); BG METHEMOGLOBIN 0.5 % (0.0-1.5); BG OXYGEN SATURATION 98.2 % (92.0-98.5); BG OXYHEMOGLOBIN 97.4 % (94.0-97.0); BG PCO2 25.6 mmHg (35.0-45.0); BG PH 7.187 (7.350-7.450); BG PO2 157.2 mmHg (75.0-100.0); BG SAMPLE SITE LEFT RADIAL; BG TIDAL VOLUME(mL) 450 mL; BG TOTAL HEMOGLOBIN 6.9 g/dL (12.0-18.0); BG VENT MODE VENT - A/C; BG VENT RATE 20 set
[2019-05-24] MEDS: IPRATROPIUM/ALBUTEROL 0.5-3(2.5)MG/3ML NEB HHN PRN (07:39)
[2019-05-24 09:25] LABS: PHOSPHORUS 9.1 mg/dL (2.5-4.9)
[2019-05-24] MEDS: PANTOPRAZOLE SODIUM 40 MG/VIAL IV SCH (09:33)
[2019-05-24] MEDS: METHYLPREDNISOLONE SOD SUCC 40 MG/ML VIAL IV SCH (09:34)
[2019-05-24] MEDS: NYSTATIN POWDER 15GM TOP SCH (09:34)
[2019-05-24] MEDS: CITRIC ACID/SODIUM CITRATE SOLN 30ML UDC PO SCH (09:34)
[2019-05-24] MEDS: CEFEPIME 1,000 MG in DEXTROSE 5% WATER 50 ML IV SCH (09:37)
[2019-05-24] MEDS: SODIUM BICARBONATE 100 MEQ in DEXTROSE 5% WATER 900 ML IV SCH (09:37)
[2019-05-24] MEDS ORDERED: SODIUM BICARBONATE 8.4% 1 MEQ/ML 50ML SYR IV SCH (09:45)
[2019-05-24] MEDS ORDERED: CALCIUM GLUCONATE 1,000 MG in DEXT 5% WATER 90 ML IV NR (10:30)
[2019-05-24] MEDS ORDERED: MORPHINE SULFATE 250 MG in DEXT 5% WATER 240 ML IV PRN (12:00)
[2019-05-24 13:37] LABS: NUCLEATED RED BLOOD CELLS 19 /100 WBC; PLATELET ESTIMATE MARKEDLY DECREASED
[2019-05-26 13:06] LABS: ANTI-MYELOPEROXIDASE AB < 9.0 U/mL (0.0-9.0); ANTI-PROTEINASE 3 ABS < 3.5 U/mL (0.0-3.5)
[2019-05-26 15:10] LABS: ANA IFA Negative (.); ATYPICAL P-ANCA <1:20 titer (Neg:<1:20); CYTOPLASMIC C-ANCA <1:20 titer (Neg:<1:20); PERINUCLEAR P-ANCA <1:20 titer (Neg:<1:20)
== END 2019-05-24 13:51 | disposition expired | DRG 871 ==
LOC: ER 03:41 → CVICU 10:14 → EDBEDREQ 10:21 → ENRESERV 12:22 → CANRESERV 12:22 → EDBEDREQSVC 12:50 → ENRESERV 13:01 → 5WST 05-10 19:36 → MICUNO 05-17 10:12
PROVIDERS: ADMIT Internal Medicine; ATTEND Internal Medicine
PROC: 30233K1 Transfusion of Nonautologous Frozen Plasma into Peripheral Vein, Percutaneous Approach (ICD-10-PCS; 2019-05-17)
PROC: 30233N1 Transfusion of Nonautologous Red Blood Cells into Peripheral Vein, Percutaneous Approach (ICD-10-PCS; 2019-05-17)
PROC: 5A09457 Assistance with Respiratory Ventilation, 24-96 Consecutive Hours, Continuous Positive Airway Pressure (ICD-10-PCS; 2019-05-20)
PROC: 0DB78ZX Excision of Stomach, Pylorus, Via Natural or Artificial Opening Endoscopic, Diagnostic (ICD-10-PCS; 2019-05-20)
PROC: 0W993ZZ Drainage of Right Pleural Cavity, Percutaneous Approach (ICD-10-PCS; principal; 2019-05-22)
PROC: 5A1945Z Respiratory Ventilation, 24-96 Consecutive Hours (ICD-10-PCS; 2019-05-23)
PROC: 0BH17EZ Insertion of Endotracheal Airway into Trachea, Via Natural or Artificial Opening (ICD-10-PCS; 2019-05-23)
DX: A41.9 Sepsis, unspecified organism (principal); N17.0 Acute kidney failure with tubular necrosis; G92 Toxic encephalopathy; J96.00 Acute respiratory failure, unspecified whether with hypoxia or hypercapnia; K29.71 Gastritis, unspecified, with bleeding; K22.11 Ulcer of esophagus with bleeding; K26.4 Chronic or unspecified duodenal ulcer with hemorrhage; R65.21 Severe sepsis with septic shock; K25.4 Chronic or unspecified gastric ulcer with hemorrhage; E87.1 Hypo-osmolality and hyponatremia; E44.1 Mild protein-calorie malnutrition; E87.2 Acidosis; J81.1 Chronic pulmonary edema; J91.8 Pleural effusion in other conditions classified elsewhere; M33.20 Polymyositis, organ involvement unspecified; L03.116 Cellulitis of left lower limb; D72.821 Monocytosis (symptomatic); I48.91 Unspecified atrial fibrillation; R74.0 Nonspecific elevation of levels of transaminase and lactic acid dehydrogenase [LDH]; F03.90 Unspecified dementia, unspecified severity, without behavioral disturbance, psychotic disturbance, mood disturbance, and anxiety; D64.9 Anemia, unspecified; E11.42 Type 2 diabetes mellitus with diabetic polyneuropathy; E11.51 Type 2 diabetes mellitus with diabetic peripheral angiopathy without gangrene; E78.5 Hyperlipidemia, unspecified; M81.0 Age-related osteoporosis without current pathological fracture; D72.810 Lymphocytopenia; D72.823 Leukemoid reaction; E11.22 Type 2 diabetes mellitus with diabetic chronic kidney disease; I25.10 Atherosclerotic heart disease of native coronary artery without angina pectoris; J44.9 Chronic obstructive pulmonary disease, unspecified; K44.9 Diaphragmatic hernia without obstruction or gangrene; K75.9 Inflammatory liver disease, unspecified; R57.1 Hypovolemic shock; R57.0 Cardiogenic shock; M19.90 Unspecified osteoarthritis, unspecified site; N18.9 Chronic kidney disease, unspecified; Z96.651 Presence of right artificial knee joint; I12.9 Hypertensive chronic kidney disease with stage 1 through stage 4 chronic kidney disease, or unspecified chronic kidney disease; G89.29 Other chronic pain; K21.9 Gastro-esophageal reflux disease without esophagitis; R57.8 Other shock; Z87.11 Personal history of peptic ulcer disease; Z95.0 Presence of cardiac pacemaker; Z90.710 Acquired absence of both cervix and uterus; Z90.49 Acquired absence of other specified parts of digestive tract; Z87.19 Personal history of other diseases of the digestive system; Z87.310 Personal history of (healed) osteoporosis fracture; Z88.6 Allergy status to analgesic agent; Z79.899 Other long term (current) drug therapy; Z88.2 Allergy status to sulfonamides; Z88.8 Allergy status to other drugs, medicaments and biological substances; Z68.29 Body mass index [BMI] 29.0-29.9, adult
CPT/HCPCS: 31500; 32555; 36415; 36556; 36600; 71045; 72110; 72131; 73502; 73718; 74018; 74176; 75635; 76881; 78278; 80048; 80053; 80061; 80076; 80202; 81003; 82040; 82085; 82150; 82270; 82375; 82533; 82550; 82652; 82805; 82962; 83036; 83520; 83605; 83615; 83735; 83880; 84100; 84134; 84145; 84155; 84439; 84443; 84481; 84484; 84550; 85014; 85018; 85025; 85027; 85049; 85362; 85379; 85384; 85651; 86141; 86147; 86160; 86200; 86225; 86235; 86256; 86431; 86705; 86709; 86803; 86850; 86880; 86900; 86920; 86927; 87340; 88108; 88305; 88312; 88313; 93005; 93306; 93923; 93970; 93971; 94002; 94003; 94640; 94660; 97110; 97163; 97167; 97530; 99291; A6261; A9560; C9113; J0610; J0692; J0696; J1644; J1815; J1940; J2060; J2250; J2270; J2370; J2405; J2543; J2920; J3010; J3370; J3430; J3475; J3480; J3490; J7030; J7040; J7050; J7060; J7070; J7512; J9260; P9016; P9017; P9047; Q9967; A4315